=== PATIENT | male | born 1970 | race Two or more races ===

== ENCOUNTER 2018-04-09 11:07 | Emergency (ER) | payer OTHER ==
--- NOTE | 2018-04-09 11:31 | EDM.PDOC ---
ED HPI GENERAL MEDICAL PROBLEM - General Chief Complaint: Cardiovascular Problem Stated Complaint: CHEST PAIN YESTERDAY/WANTS TO BE CHECKED Time Seen by Provider: 04/09/18 11:31 Source of Information: Reports: Patient History Limitations: Reports: No Limitations - History of Present Illness INITIAL COMMENTS - FREE TEXT/NARRATIVE: 48-year-old male presents to the ED for evaluation of transient sharp stabbing left precordial chest pain that occurred yesterday morning while traveling to work. His pain came on suddenly while he was seated. It was very sharp and stabbing and it seemed to go right through his left precordial chest into his back. It also referred into his left shoulder and down his left arm towards the elbow. It lasted a good hour or more. No associated burping or belching. No development of any trouble swallowing. Today he has no pain and he was able to work yesterday without any pain or discomfort. Is no known history of coronary disease. He was noted not developed any fever or chills. Eyes sputum production. He does travel a good deal in for his work sits for long periods of time in a vehicle placing a low-grade risk of PE. No history of DVT. Does smoke about 3 cores a pack of cigarettes daily. No family history of significant heart disease Onset: Sudden Onset Date: 04/08/18 Onset Time: 08:30 Duration: Hour(s): (Pain lasted about an hour.) Location: Reports: Chest (Left upper precordial chest. Very sharp and stabbing pain rating to to the back.) Quality: Reports: Ache, Sharp, Stabbing Severity: Moderate (Pain was 7 or 8 at times.) Improves with: Reports: Other (Went away on its own.) Worsens with: Reports: None Context: Reports: Other. Denies: Activity, Exercise, Lifting, Sick Contact, Trauma (Spontaneous occurrence well seated in a motor vehicle) Associated Symptoms: Reports: No Other Symptoms, Chest Pain. Denies: Confusion , Cough, cough w sputum, Diaphoresis, Fever/Chills, Headaches, Loss of Appetite , Malaise, Nausea/Vomiting, Rash, Seizure, Shortness of Breath, Syncope Treatments PRODUCE TEAM LEAD: Reports: Other (see below) (None.) - Related Data Allergies Allergy/AdvReac Type Severity Reaction Status Date / Time No Known Allergies Allergy Verified 04/09/18 11:21 Home Meds: Home Meds . [No Known Home Meds] 04/09/18 [History] Social & Family History - Tobacco Use Smoking Status *Q: Current Every Day Smoker Tobacco Use Within Last Twelve Months: Cigarettes (Usually three quarters of a pack per day.) - Living Situation & Occupation Living situation: Reports: Occupation: Employed ED ROS GENERAL - Review of Systems Review Of Systems: See Below Constitutional: Denies: Fever, Chills, Malaise, Weakness, Fatigue, Decreased Appetite, Weight Loss HEENT: Reports: No Symptoms Respiratory: Reports: Pleuritic Chest Pain, Cough. Denies: Shortness of Breath (Occasional smoker's cough), Wheezing, Sputum, Hemoptysis (Pain yesterday was very sharp and stabbing left upper precordial chest. Lasted for about an hour dissipated and hasn't subsequently not returned) Cardiovascular: Reports: Chest Pain. Denies: Blood Pressure Problem (See history of present illness), Claudication, Edema, Lightheadedness, Orthopnea Endocrine: Reports: No Symptoms GI/Abdominal: Reports: No Symptoms, Other (Denies GERD or need for Tums or Rolaids.) : Reports: No Symptoms Musculoskeletal: Reports: Hand Pain Skin: Reports: No Symptoms Neurological: Reports: No Symptoms Psychiatric: Reports: No Symptoms Hematologic/Lymphatic: Reports: No Symptoms Immunologic: Reports: No Symptoms ED EXAM, GENERAL - Physical Exam Exam: See Below Exam Limited By: No Limitations General Appearance: Alert, WD/WN, No Apparent Distress, Anxious (Mildly anxious. ) Throat/Mouth: Normal Inspection, Normal Lips, Normal Teeth, Normal Oropharynx Head: Atraumatic, Normocephalic Neck: Normal Inspection, Supple, Non-Tender, Full Range of Motion. No: Carotid Bruit, Lymphadenopathy (L), Lymphadenopathy (R) Respiratory/Chest: No Respiratory Distress, Lungs Clear, Normal Breath Sounds, No Accessory Muscle Use, Chest Non-Tender, Other (I could not find any pain on palpation throughout the ribs) Cardiovascular: Normal Peripheral Pulses ( posteriorly or anteriorly.), Regular Rate, Rhythm, No Edema, No Gallop, No Murmur Peripheral Pulses: 3+: Carotid (L), Carotid (R), Posterior Tibial (L), Posterior Tibial (R), Dorsalis Pedis (L), Dorsalis Pedis (R) GI/Abdominal: Normal Bowel Sounds, Soft, Non-Tender, No Organomegaly, No Abnormal Bruit, No Mass, Pelvis Stable Back Exam: Normal Inspection, Full Range of Motion, Other. No: CVA Tenderness ( L), CVA Tenderness (R) Extremities: Normal Inspection, Normal Range of Motion (No evidence of rib head subluxation.), Non-Tender, No Pedal Edema Neurological: Alert, CN II-XII Intact, Normal Cognition, Normal Gait Psychiatric: Normal Affect, Normal Mood Skin Exam: Warm, Dry, Intact, Normal Color, No Rash EKG INTERPRETATION EKG Date: 04/09/18 Time: 11:23 Rhythm: NSR Rate (Beats/Min): 63 [place]: Normal P-Wave: Present QRS: Other (Borderline criteria for left ventricular hypertrophy pattern. RS are prime wave in V1 normal variant. Q-wave noted in aVL which is nonspecific.) ST-T: Other (Mild diffuse early repolarization pattern.) QT: Normal EKG Interpretation Comments: Borderline ECG Course - Vital Signs Last Recorded V/S: Last Vital Signs Temp 36.1 C 04/09/18 11:21 Pulse 59 L 04/09/18 11:21 Resp 19 04/09/18 11:21 BP 138/103 H 04/09/18 11:21 Pulse Ox 97 04/09/18 11:21 - Orders/Labs/Meds Orders: Active Orders 24 hr Category Date Time Status EKG Documentation Completion [RC] STAT Care 04/09/18 11:37 Active Chest 1V Frontal [CR] Stat Exams 04/09/18 11:37 Taken Labs: Laboratory Tests 04/09/18 04/09/18 04/09/18 Range/Units 11:45 11:45 11:55 WBC 6.29 (4.23-9.07) K/mm3 RBC 4.64 (4.63-6.08) M/mm3 Hgb 14.3 (13.7-17.5) gm/L Hct 43.1 (40.1-51.0) % MCV 92.9 H (79.0-92.2) fl MCH 30.8 (25.7-32.2) pg MCHC 33.2 (32.2-35.5) g/dl RDW Std Deviation 44.7 H (35.1-43.9) fL Plt Count 263 (163-337) K/mm3 MPV 9.6 (9.4-12.3) fl Neutrophils % (Manual) 60 (40-60) % Band Neutrophils % 0 (0-10) % Lymphocytes % (Manual) 33 (20-40) % Atypical Lymphs % 0 % Monocytes % (Manual) 5 (2-10) % Eosinophils % (Manual) 2 (0.8-7.0) % Basophils % (Manual) 0 L (0.2-1.2) Platelet Estimate Adequate RBC Morph Comment Normal D-Dimer, Quantitative 0.30 (0.19-0.50) mg/L Sodium 138 (136-145) mEq/L Potassium 4.1 (3.5-5.1) mEq/L Chloride 103 (98-107) mEq/L Carbon Dioxide 29 (21-32) mEq/L Anion Gap 10.1 (5-15) BUN 13 (7-18) mg/dL Creatinine 1.1 (0.7-1.3) mg/dL Est Cr Clr Drug Dosing 80.32 mL/min Estimated GFR (MDRD) > 60 (>60) mL/min BUN/Creatinine Ratio 11.8 L (14-18) Glucose 101 (74-106) mg/dL Calcium 9.2 (8.5-10.1) mg/dL Total Bilirubin 0.5 (0.2-1.0) mg/dL AST 31 (15-37) U/L ALT 42 (16-63) U/L Alkaline Phosphatase 117 H (46-116) U/L CK-MB (CK-2) 3.0 (0-3.6) ng/ml Troponin I 0.021 (0.00-0.056) ng/mL C-Reactive Protein < 0.2 (<1.0) mg/dL Total Protein 8.0 (6.4-8.2) g/dl Albumin 4.1 (3.4-5.0) g/dl Globulin 3.9 gm/dL Albumin/Globulin Ratio 1.1 (1-2) - Radiology Interpretation Free Text/Narrative:: 48-year-old male presents to the ED with reported left precordial chest pain that was very sharp and stabbing that occurred yesterday while driving to work. States she was seated but was not driving the vehicle and this occurred. Pain was a sharp and stabbing seem to radiate through to the upper left back. States it radiated to his left shoulder down his medial arm towards the elbow. Pain lasted about an hour before it went away on its own. He was able to continue work without issue. After discussing the positive his today he elected to come to the hospital for checkup. Rarely sees a physician. He is a three quarters of a pack a day smoker. Occasional cough. Examination is completely normal. Chest wall pain could be elicited. Lungs are clear heart sounds are normal. ECG suggests left ventricular hypertrophy pattern. His initial blood pressure was elevated at 138/103. Current blood pressure is now 126/90. Plan 1 view chest x-ray to be done. Routine labs to include a d-dimer and cardiac markers. Risk for cardiac event appears to be extremely low. - Re-Assessments/Exams Free Text/Narrative Re-Assessment/Exam: 04/09/18 12:04 portable chest chest x-ray suggests borderline cardiomegaly. This may be magnification from portable technique. Visualized portions of the lungs are clear. Bony architecture the ribs appears to be normal. There is no pneumothorax. 04/09/18 12:37 Labs are back. Total white count is normal at 6.29 with 60% neutrophils and no bands reported. Hemoglobin is 14.3 with hematocrit of 43.1. MCV is mildly elevated at 92.9. Will student support counselor to 63,000. D-dimer is normal at 0.30. Chemistry is normal. BUN is 13 with a creatinine of 1.1. Glucose is 101. Calcium is 9.2. Liver function is normal CK-MB fraction is 3.0. Troponin I is 0.021. C-reactive protein is less than 0.2. Labs are normal but he does have mild hypertension with a persistent diastolic greater than 90. It seems to stay rate of 11. Therefore going to suggest that he be either closely monitored for a period of time before going ahead and start blood pressure medication. 04/09/18 12:41 Upon discussion with the patient he has had borderline blood pressure issues for several years. He states that after he lost 10 pounds his blood pressure returned to normal. He will monitor it over the next few weeks and months and advised him that if his diastolic pressures remain overnight he that he will require an antihypertensive medication such as amlodipine. He is consistently running of bradycardia of 55-60/m. Patient reassured no injury evidence of heart related illness. Chest wall pain suspect. Departure - Departure Time of Disposition: 12:43 Disposition: Home, Self-Care 01 Condition: Fair Clinical Impression: Non-cardiac chest pain, Mild essential hypertension Instructions: Nonspecific Chest Pain, [id number] Referrals: Gabriel Jama Jr, MD [Primary Care Provider] - Forms: ED Department Discharge, ED Return to Work/School Form Additional Instructions: Evaluation the emergency room today in regards to development of left precordial chest pain which is very sharp and stabbing yesterday on her way to work. This lasted a good hour and then dissipated and went away on its own. Examination does not reveal any sources or signs of chest wall pain. Complete cardiac workup was carried out and no abnormalities were identified. The ECG does suggest that you have mild linear elevated blood pressure. Pressure in the ED did remove show a diastolic or low number blood pressure that remained for the most part above 90 at all times. This suggests you do have a mild essential hypertension problem and may need blood pressure medication. Just checking this and running down the numbers over the next several weeks and then following up with your personal doctor. Lab tests done today reveal no evidence of heart related illness and no sign of blood clots in the lung. The cause of your chest pain is unclear although the fact that is very sharp and stabbing and transient suggests that it was either from muscle spasm in the chest wall or food pipe spasm. At this time you have no restrictions she may return to work in full capacity - My Orders Last 24 Hours: My Active Orders 04/09/18 11:37 EKG Documentation Completion [RC] STAT Chest 1V Frontal [CR] Stat - Assessment/Plan Last 24 Hours: My Active Orders 04/09/18 11:37 EKG Documentation Completion [RC] STAT Chest 1V Frontal [CR] Stat
--- NOTE | 2018-04-10 11:50 | CR ---
Chest: Portable view of the chest was obtained. Comparison: No prior chest x-ray. Heart size and mediastinum are within normal limits for portable technique. Lungs are clear. Bony structures are grossly intact. Impression: 1. Nothing acute is seen on portable chest x-ray. Diagnostic code #1
== END 2018-04-09 13:01 | disposition home or self-care (01) ==
LOC: JD.ED 11:07
DX: R07.2 Precordial pain (principal); I10 Essential (primary) hypertension; F17.210 Nicotine dependence, cigarettes, uncomplicated
CPT/HCPCS: 36415; 71045; 71045-26; 80053; 82553; 84484; 85007; 85027; 85379; 86140; 93005; 93010; 99284-25; 99285-25

== ENCOUNTER 2020-04-12 11:50 | Emergency (ER) | payer OTHER ==
--- NOTE | 2020-04-12 12:27 | EDM.PDOCBH ---
ED HPI GENERAL MEDICAL PROBLEM - General Chief Complaint: Drug or Alcohol Abuse Stated Complaint: ALCOHOL DETOX Time Seen by Provider: 04/12/20 12:12 Source of Information: Reports: Patient History Limitations: Reports: No Limitations - History of Present Illness INITIAL COMMENTS - FREE TEXT/NARRATIVE: Patient is a 50-year-old male presenting to the emergency department with re quest of getting assistance to stop drinking. He states that for the last 5 months he has been drinking about 6 shots of vodka as well as a number of beers each evening and during the day on his days off. He is able to maintain sobriety in order to work throughout the day, however when returning home in the evening he gives into the temptation to drink. His last drink was last evening around 10 PM. States that he did meet with somebody at [facility] 2 months ago, but he is not sure what they said. He did state that they recommended he go to , however he states that is too depressing and he does not feel that will help him. He denies any withdrawal symptoms. He has never gone through DTs or had alcoholic withdrawal seizures. He has never undergone any type of alcohol treatment in the past. He denies any illicit drug use but does smoke cigarettes. - Related Data Allergies Allergy/AdvReac Type Severity Reaction Status Date / Time No Known Allergies Allergy Verified 04/12/20 12:10 Home Meds: Home Meds . [No Known Home Meds] 04/09/18 [History] Past Medical History - Past Health History Medical/Surgical History: Denies Medical/Surgical History Social & Family History - Family History Family Medical History: Noncontributory - Tobacco Use Smoking Status *Q: Current Every Day Smoker Years of Tobacco use: 3 Packs/Tins Daily: 1 - Caffeine Use Caffeine Use: Reports: Coffee - Recreational Drug Use Recreational Drug Use: No - Living Situation & Occupation Living situation: Reports: Occupation: Employed ED ROS GENERAL - Review of Systems Review Of Systems: Comprehensive ROS is negative, except as noted in HPI. ED EXAM, BEHAVIORAL HEALTH - Physical Exam Exam: See Below General Appearance: Alert, WD/WN, No Apparent Distress Respiratory/Chest: No Respiratory Distress, Lungs Clear, Normal Breath Sounds, No Accessory Muscle Use, Chest Non-Tender Cardiovascular: Normal Peripheral Pulses, Regular Rate, Rhythm, No Edema, No Gallop, No JVD, No Murmur, No Rub GI/Abdominal: Normal Bowel Sounds, Soft, Non-Tender, No Organomegaly, No Distention, No Abnormal Bruit, No Mass Neurological: Alert, Normal Mood/Affect, CN II-XII Intact, Normal Cognition, Normal Gait, Normal Reflexes, No Motor/Sensory Deficits, Oriented x 3 Psychiatric: Alert, Normal Affect, Normal Cognition, Normal Mood, Oriented COURSE, BEHAVIORAL HEALTH COMP - Course Vital Signs: Last Vital Signs Temp 97.6 F 04/12/20 12:06 Pulse 86 04/12/20 12:06 Resp 20 04/12/20 12:06 BP 157/98 H 04/12/20 12:06 Pulse Ox 100 04/12/20 12:06 Orders, Labs, Meds: Laboratory Tests 04/12/20 04/12/20 04/12/20 Range/Units 12:54 12:54 13:35 WBC 8.60 (4.23-9.07) K/mm3 RBC 4.24 L (4.63-6.08) M/mm3 Hgb 13.5 L (13.7-17.5) gm/dl Hct 41.2 (40.1-51.0) % MCV 97.2 H D (79.0-92.2) fl MCH 31.8 (25.7-32.2) pg MCHC 32.8 (32.2-35.5) g/dl RDW Std Deviation 46.1 H (35.1-43.9) fL Plt Count 279 (163-337) K/mm3 MPV 9.9 (9.4-12.3) fl Neut % (Auto) 66.1 (34.0-67.9) % Lymph % (Auto) 22.0 (21.8-53.1) % [place] % (Auto) 9.0 (5.3-12.2) % Eos % (Auto) 1.5 (0.8-7.0) Baso % (Auto) 0.5 (0.1-1.2) % Neut # (Auto) 5.69 H (1.78-5.38) K/mm3 Lymph # (Auto) 1.89 (1.32-3.57) K/mm3 [place] # (Auto) 0.77 (0.30-0.82) K/mm3 Eos # (Auto) 0.13 (0.04-0.54) K/mm3 Baso # (Auto) 0.04 (0.01-0.08) K/mm3 Sodium 140 (136-145) mEq/L Potassium 4.0 (3.5-5.1) mEq/L Chloride 104 (98-107) mEq/L Carbon Dioxide 25 (21-32) mEq/L Anion Gap 15.0 (5-15) BUN 17 (7-18) mg/dL Creatinine 1.1 (0.7-1.3) mg/dL Est Cr Clr Drug Dosing 81.23 mL/min Estimated GFR (MDRD) > 60 (>60) mL/min BUN/Creatinine Ratio 15.5 (14-18) Glucose 108 H (74-106) mg/dL Calcium 8.5 (8.5-10.1) mg/dL Total Bilirubin 0.3 (0.2-1.0) mg/dL AST 23 (15-37) U/L ALT 33 (16-63) U/L Alkaline Phosphatase 80 (46-116) U/L Total Protein 6.9 (6.4-8.2) g/dl Albumin 3.5 (3.4-5.0) g/dl Globulin 3.4 gm/dL Albumin/Globulin Ratio 1.0 (1-2) Urine Opiates Screen Negative (ADVCAI=421) Ur Buprenorphine Scrn Negative (CUTOFF=10) Ur Oxycodone Screen Negative (LBV7YG=458) Urine Methadone Screen Negative (THC0WU=913) Ur Propoxyphene Screen Negative (UMRUQE=447) Ur Barbiturates Screen Negative (XOFYSY=687) Ur Tricyclics Screen Negative (QTSXWG=215) Ur Phencyclidine Scrn Negative (CUTOFF=25) Ur Amphetamine Screen Negative (FGBTXE=312) U Methamphetamines Scrn Negative (ZLILSK=047) U Benzodiazepines Scrn Negative (ZBKSFJ=513) U Cocaine Metab Screen Negative (QUHWJI=886) U Marijuana (THC) Screen Negative (CUTOFF=50) Ethyl Alcohol 0.00 (0.00) gm% Medical Clearance: 04/12/20 15:33 Patient hematology was grossly unremarkable. Drug screen was negative. Blood alcohol is 0.00. Called and spoke with Sangeeta with [facility]. They enforcement do not have any crisis beds available, however they did recommend that he come over to [facility] at this time and they will start the intake process with him and come up with a treatment plan. Discussed this with the patient and he is in agreement. Discharge instructions as documented. Departure - Departure Time of Disposition: 15:33 Disposition: Home, Self-Care 01 Condition: Good Clinical Impression: Alcohol abuse - Discharge Information *PRESCRIPTION DRUG MONITORING PROGRAM REVIEWED*: No *COPY OF PRESCRIPTION DRUG MONITORING REPORT IN PATIENT AMIRA: No Instructions: Alcohol Use Disorder Referrals: PCP,None [Primary Care Provider] - Forms: ED Department Discharge Additional Instructions: You were seen in the emergency department today asking for assistance with helping to stop drinking. Blood work was completed in ER was and found was found to be normal. Your blood alcohol level was 0. Arrangements have been made for you to meet with somebody at [facility]. Please go directly there after leaving the emergency department. Their address is [address] [place] [address]. Follow the treatment plan that they set up for you. Return to ER with any new or worsening symptoms of concern. Sepsis Event Note (ED) - Evaluation Sepsis Screening Result: No Definite Risk
== END 2020-04-12 15:45 | disposition home or self-care (01) ==
LOC: JD.ED 11:50
DX: F10.10 Alcohol abuse, uncomplicated (principal); F17.210 Nicotine dependence, cigarettes, uncomplicated
CPT/HCPCS: 36415; 80053; 80306; 80307; 85025; 99282; 99284

== ENCOUNTER 2020-06-05 12:47 | Emergency (ER) | payer SELFPAY ==
[2020-06-05] MEDS ORDERED: Ciprofloxacin 0.3% Ophth Soln 5 ML Bottle EYELF ONE (13:38)
[2020-06-05] MEDS ORDERED: Ketorolac 0.5% Ophth Soln 5 ML Bottle EYELF ONE (13:38)
--- NOTE | 2020-06-05 13:42 | EDM.PDOC ---
ED HPI GENERAL MEDICAL PROBLEM - General Chief Complaint: Eye Problems Stated Complaint: FB IN EYE Time Seen by Provider: 06/05/20 13:26 Source of Information: Reports: Patient History Limitations: Reports: No Limitations - History of Present Illness INITIAL COMMENTS - FREE TEXT/NARRATIVE: 50-year-old male of [place] descent presents to the ED complaining of foreign body sensation left eye. He states he was cutting wood yesterday morning and was wearing his safety glasses. On the way home from the work place last evening he developed sudden feeling of foreign body in his left eye. He rubbed his eye excessively he lifted his eye a lot lit up and tried to remove anything in his eye but could not find any foreign body. His eyes persisted and hurting him all night long with excessive tearing and photosensitivity. He has had previous piece of metal in his eye and it feels similar. He does not wear contact lenses or eyeglasses. Onset: Sudden Onset Date: 06/04/20 Onset Time: 17:00 Duration: Hour(s):, Getting Worse Location: Reports: Face Quality: Reports: Ache (Foreign body sensation left eye with photosensitivity and excessive tearing.), Burning, Other Severity: Moderate (Tussive tearing and photosensitivity left eye) Improves with: Reports: Rest (Being the left eye closed helps.) Worsens with: Reports: Other Context: Reports: Other. Denies: Activity (Exposure to light), Exercise, Lifting, Sick Contact, Trauma Associated Symptoms: Reports: No Other Symptoms (Possible foreign body entering the eye in the workplace.) Treatments REAR ADMIRAL: Reports: Other (see below) (None.) Left Eye Pain Score (Numeric/FACES): 6 - Related Data Allergies Allergy/AdvReac Type Severity Reaction Status Date / Time No Known Allergies Allergy Verified 06/05/20 13:05 Home Meds: Home Meds . [No Known Home Meds] 04/09/18 [History] Past Medical History - Past Health History Medical/Surgical History: Denies Medical/Surgical History - Infectious Disease History Infectious Disease History: Reports: None Social & Family History - Family History Family Medical History: No Pertinent Family History - Tobacco Use Tobacco Use Status *Q: Current Every Day Tobacco User Years of Tobacco use: 2 Packs/Tins Daily: 1 - Caffeine Use Caffeine Use: Reports: Coffee - Recreational Drug Use Recreational Drug Use: No - Living Situation & Occupation Living situation: Reports: Occupation: Employed ED ROS GENERAL - Review of Systems Review Of Systems: See Below Constitutional: Reports: Fatigue (From not sleeping so well last night.). Denies: Fever, Chills, Malaise, Weakness, Weight Loss HEENT: Reports: Eye Pain (1 body sensation left eye with excessive tearing and photophobia.) Respiratory: Reports: No Symptoms Cardiovascular: Reports: No Symptoms Endocrine: Reports: No Symptoms GI/Abdominal: Reports: No Symptoms : Reports: No Symptoms Musculoskeletal: Reports: No Symptoms Skin: Reports: No Symptoms Neurological: Reports: No Symptoms Psychiatric: Reports: No Symptoms Hematologic/Lymphatic: Reports: No Symptoms Immunologic: Reports: No Symptoms ED EXAM GENERAL W FULL EYE - Physical Exam Exam: See Below Exam Limited By: No Limitations General Appearance: Alert, WD/WN, No Apparent Distress, Mild Distress, Other (Left conjunctiva both medial and laterally is markedly injected. He denies any change in his visual acuity of the left eye.) Eye Exam: Left Eye: Conjunctival Injection (Both medially and laterally.), Corneal Abrasion (Corneal abrasion identified both at the 12 o'clock position and 6 o'clock position of the eye with slit lamp exam.), Foreign Body (No foreign bodies were identified.), Bilateral Eye: PERRL Eyelids: Left: Lid Everted for Exam (Foreign bodies identified.), Bilateral: Normal Appearance Conjunctiva & Sclera: Bilateral: Injected (Both sides of the conjunctiva and sclera were injected.) Cornea Exam: Right: Corneal Abrasion (Is a stellate irregular fairly superficial corneal abrasion at the 12 o'clock position that travels from the limbus to approximately 3 mm towards the center of the cornea. There is a linear abrasion along the inferior portion of the left cornea as well.), Left: Examined with Flourescein Extraocular Movements: Bilateral: Intact Pupils: Normal Accommodation Pupillary Size: Bilateral: 5 mm Pupillary Reaction: Bilateral: Brisk Anterior Chamber: Left: Normal Appearance Course - Vital Signs Last Recorded V/S: Last Vital Signs Temp 36.4 C 06/05/20 13:03 Pulse 81 06/05/20 13:03 Resp 16 06/05/20 13:03 BP 136/88 06/05/20 13:03 Pulse Ox 97 06/05/20 13:03 - Orders/Labs/Meds Meds: Medications Discontinued Medications Generic Name Dose Route Start Last Admin Trade Name Sita PRN Reason Stop Dose Admin Ciprofloxacin 5 ml 06/05/20 13:38 06/05/20 13:46 Ciloxan 0.3% Ophth Soln EYELF 06/05/20 13:39 1 dose ONETIME ONE Administration Ketorolac Tromethamine 3 ml 06/05/20 13:38 06/05/20 13:45 Acular 0.5% Ophth Soln EYELF 06/05/20 13:39 2 drop ONETIME ONE Administration - Radiology Interpretation Free Text/Narrative:: 50-year-old male of [place] descent presents to the ED with foreign body sensation left eye since yesterday afternoon after getting off from work. 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 He was not aware of anything entering his eye during work. However with his safety goggles off and driving home he felt something enter his left eye. He could make it better by lifting his upper eyelid away from his eyes suggesting something was wedged up underneath the eyelid. He washed his eye vigorously at home last night. However in spite of this his left eye continues to hurt him this morning with excessive tearing and photosensitivity. Examination with loupes and bright light does not show any foreign bodies within the eye or under the everted right eyelid. Slit-lamp exam does show corneal abrasion at the 12:00 and 6:00 positions. Fluorescein staining revealed that they were fairly superficial. Patient will be treated with ketorolac eyedrops 2 drops to the eye every 6 hours needed to relieve pain and inflammation for 24 hours. Antibiotic drops will be Cipro ophthalmic drops 2 drops to the left eye every 8 hours for 2 days to prevent secondary infection. The eye will be double patched closed and only to be taken off to allow drops placement until tomorrow morning. He is to follow-up if not completely back to normal in 24 to 36 hours time Departure - Departure Time of Disposition: 13:39 Disposition: Home, Self-Care 01 Condition: Fair Clinical Impression: Corneal abrasion, left Qualifiers: Encounter type: initial encounter Qualified Code(s): S05.02XA - Injury of conjunctiva and corneal abrasion without foreign body, left eye, initial encounter - Discharge Information *PRESCRIPTION DRUG MONITORING PROGRAM REVIEWED*: Not Applicable *COPY OF PRESCRIPTION DRUG MONITORING REPORT IN PATIENT AMIRA: Not Applicable Instructions: Corneal Abrasion, [id number] Forms: ED Department Discharge Additional Instructions: Evaluation in the emergency room today in regards to foreign body sensation in your left eye since yesterday afternoon at work. You report cutting wood yesterday morning and were wearing her safety glasses. On the way home last evening he felt something drop into your eye and it felt like it went up un derneath your eyelid. Attempts to remove it and irrigated from your eye did not seem to come up with anything. The eyes continue to be irritated with excessive tearing redness and very sensitive to light since that time. On examination in the ED no foreign bodies were identified within the eye. Inversion of the upper eyelid did not show any foreign bodies either. Slit lamp exam does reveal a corneal abrasion at the 12 o'clock position and is also a smaller corneal abrasion at the 6 o'clock position of the eye. These corneal abrasions likely occurred from something up underneath your eyelid that cause scratching of the cornea with blinking. However no foreign bodies were identified at this time. Treatment is ketorolac drops 2 drops to the left eye every 6 hours as needed to relieve pain and inflammation. You will usually need this for about 24 hours. Second drop is antibiotic Cipro drops 2 drops every 8 hours for the next 2 days to prevent any infection from occurring. Left eye is to be double patched closed and only opened up to allow drops to be placed until tomorrow morning when it could remain off. The cornea will take about 24 hours to heal completely. If not completely back to normal in 24 to 36 hours you need to be seen again. Sepsis Event Note (ED) - Evaluation Sepsis Screening Result: No Definite Risk - Focused Exam Vital Signs: Vital Signs Temp Pulse Resp BP Pulse Ox 06/05/20 13:03 36.4 C 81 16 136/88 97
== END 2020-06-05 14:30 | disposition home or self-care (01) ==
LOC: JD.ED 12:47
DX: S05.02XA Injury of conjunctiva and corneal abrasion without foreign body, left eye, initial encounter (principal); F17.210 Nicotine dependence, cigarettes, uncomplicated; X58.XXXA Exposure to other specified factors, initial encounter
CPT/HCPCS: 99283; A9270

== ENCOUNTER 2020-10-03 19:10 | Emergency (ER) | payer SELFPAY ==
--- NOTE | 2020-10-03 19:37 | EDM.PDOC ---
ED HPI GENERAL MEDICAL PROBLEM - General Chief Complaint: Laceration Stated Complaint: HAND LAC Time Seen by Provider: 10/03/20 19:31 Source of Information: Reports: Patient, RN Notes Reviewed History Limitations: Reports: No Limitations - History of Present Illness INITIAL COMMENTS - FREE TEXT/NARRATIVE: Patient is a 50-year-old male who presents to the ED for a right index finger laceration. He states he was using an [employer] knife at work, trying to cut shims, and he ended up lacerating the radial aspect of his right index finger. This happened 2 days ago. He did not come to the ER at this time because the bleeding stopped with pressure. He came tonight because he was concerned about possible infection due to some warmth at the wound site. There is no drainage, there is no redness apparent. He still has good sensation distal to the injury, and has good range of motion with the finger itself. He is not sure of his last tetanus vaccine. Patient denies any other sick-like symptoms, fever/chills, cough/shortness of breath, nausea/vomiting/diarrhea. The laceration itself is roughly 3.5 cm in length. Right Finger-Index Pain Score (Numeric/FACES): 3 - Related Data Allergies Allergy/AdvReac Type Severity Reaction Status Date / Time No Known Allergies Allergy Verified 10/03/20 19:22 Home Meds: Home Meds . [No Known Home Meds] 04/09/18 [History] Past Medical History - Past Health History Medical/Surgical History: Denies Medical/Surgical History - Infectious Disease History Infectious Disease History: Reports: None Social & Family History - Family History Family Medical History: No Pertinent Family History - Tobacco Use Tobacco Use Status *Q: Current Every Day Tobacco User Years of Tobacco use: 4 Packs/Tins Daily: 0.5 - Caffeine Use Caffeine Use: Reports: None - Alcohol Use Number of Drinks Per Day: 1 - Recreational Drug Use Recreational Drug Use: No - Living Situation & Occupation Living situation: Reports: Occupation: Employed ED ROS GENERAL - Review of Systems Review Of Systems: Comprehensive ROS is negative, except as noted in HPI. ED EXAM, SKIN/RASH Exam: See Below Exam Limited By: No Limitations General Appearance: Alert, WD/WN, No Apparent Distress Respiratory/Chest: No Respiratory Distress, Lungs Clear, Normal Breath Sounds, No Accessory Muscle Use, Chest Non-Tender Cardiovascular: Normal Peripheral Pulses, Regular Rate, Rhythm Peripheral Pulses: 2+: Radial (L), Radial (R) Extremities: Normal Inspection, Normal Capillary Refill Neurological: Alert, Oriented, No Motor/Sensory Deficits Psychiatric: Normal Affect, Normal Mood Skin: Warm, Dry, Normal Color, No Rash, Wound/Incision (Roughly 3.5 cm linear laceration to the radial aspect of the patient's proximal right index finger. No active bleeding is apparent.) Course - Vital Signs Last Recorded V/S: Last Vital Signs Temp 97.6 F 10/03/20 19:20 Pulse 72 10/03/20 19:20 Resp 18 10/03/20 19:20 BP 127/90 10/03/20 19:20 Pulse Ox 98 10/03/20 19:20 - Re-Assessments/Exams Free Text/Narrative Re-Assessment/Exam: 10/03/20 19:39 Patient presents for his right index finger laceration, due to this being 2 days ago, wound repair can not be done. We will update his tetanus for today's purposes and have him practice good wound management and discharge home. Departure - Departure Time of Disposition: 19:40 Disposition: Home, Self-Care 01 Condition: Good Clinical Impression: Laceration of index finger of right hand without complication - Discharge Information *PRESCRIPTION DRUG MONITORING PROGRAM REVIEWED*: No *COPY OF PRESCRIPTION DRUG MONITORING REPORT IN PATIENT AMIRA: No Instructions: Laceration Care, Adult, [id number] Referrals: PCP,None [Primary Care Provider] - Forms: ED Department Discharge Additional Instructions: You were seen in the ER today for your right index finger laceration. Unfortunately since this injury happened 2 days ago, repair with sutures cannot be done at today's visit. The area was cleansed, and does not appear to be infected at today's visit. Your tetanus vaccine however was updated at today's visit since you could not remember the last time you had a booster of this. Please keep an eye on the area, for any redness, swelling or drainage at the wound site as this would be cause for concern for possible infection and need for antibiotics. Please return to the ER at any time if symptoms change or worsen. Sepsis Event Note (ED) - Evaluation Sepsis Screening Result: No Definite Risk - Focused Exam Vital Signs: Vital Signs Temp Pulse Resp BP Pulse Ox 10/03/20 19:20 97.6 F 72 18 127/90 98
[2020-10-03] MEDS ORDERED: Diphtheria,Pertussis(Acell),Tetanus Vaccine 0.5 ML Syringe IM ONE (19:38)
== END 2020-10-03 20:05 | disposition home or self-care (01) ==
LOC: JD.ED 19:10
DX: S61.210A Laceration without foreign body of right index finger without damage to nail, initial encounter (principal); Z72.0 Tobacco use; Z23 Encounter for immunization; W26.0XXA Contact with knife, initial encounter; Y92.89 Other specified places as the place of occurrence of the external cause; Y99.0 Civilian activity done for income or pay
CPT/HCPCS: 90471; 90715; 99282

== ENCOUNTER 2025-07-04 11:47 | Emergency (ER) | payer BC ==
[2025-07-04] MEDS: Fluorescein 1 MG Ophth Strip EYEBOTH ONE (12:58)
== END 2025-07-04 13:22 | disposition home or self-care (01) ==
LOC: JD.ED 11:47
DX: S05.02XA Injury of conjunctiva and corneal abrasion without foreign body, left eye, initial encounter (principal); X58.XXXA Exposure to other specified factors, initial encounter; Y99.0 Civilian activity done for income or pay
CPT/HCPCS: 99283; A9270; J3490